=== PATIENT | female | born 1960 | race Caucasian/White ===

== ENCOUNTER 2016-07-19 09:50 | Observation (INO) | payer OTHER ==
--- NOTE | ~2016-07-19 | HP ---
History And Physical [facility] [id number] [place]. [address] NAME: REMINGTON DURAN : 58 STATUS : ADM [facility] PAT#: [id number] AGE: 56 ADM/REG DATE : 07/19/16 MR#: [id number] REPORT SERV DATE: 07/19/16 DICTATED BY: EKTA SINGER DATE: 07/19/16 REPORT STATUS : Draft TRANSCRIBED BY: MODIlene DATE: 07/19/16 DATE OF ADMISSION: 07/19/2016 CHIEF COMPLAINT: Chest pressure. HISTORY OF PRESENT ILLNESS: This is a 56-year-old, pleasant, white female with no known history of CAD, who presents to our facility with complaints of chest pressure that radiates to her left arm. She states she was up most of the night last night with diarrhea and while up, she experienced some subtle chest pain that radiated towards her left arm. She was able to go back to sleep, but the discomfort persisted this morning, which was concerning for her. She describes the chest discomfort as a pressure. She reports associated diaphoresis. Denies shortness of breath, nausea, dizziness, or belching. At its most intense, she rates the chest pain an 8/10. At the time of interview in the CPOU, she rates it a 3/10. The episode lasted several hours in duration and was improved with the application of Nitro paste to her chest wall. She reports this is a solitary event. In hind site, she has had no previous episodes and she states this pain is different than her rheumatoid arthritis pain. She denies any personal history of myocardial infarction, stroke, DVT, or pulmonary embolus. The patient denies any recent fever or chills. No palpitations. No syncopal episodes. Denies PND or orthopnea. PAST MEDICAL HISTORY: 1. Hypertension. 2. Diabetes. 3. Pyoderma gangrenosum. 4. Rheumatoid arthritis. 5. Cholesterol, followed by PCP. 6. History of nephrolithiasis. PAST SURGICAL HISTORY: 1. Right total knee replacement. 2. Bilateral cataract repair. 3. Left lumpectomy (benign). 4. Cervical ablation. 5. Septoplasty. SOCIAL HISTORY: She is single, with no children. She is employed in the accounting department at [employer] She works out on a stationary bike daily, most recently, yesterday evening for 15 minutes without incident. She denies tobacco, alcohol or illicits. FAMILY HISTORY: Mother with CAD and bypass at 74 with a stroke in her early 70s, at the age of 81. Father at 78 with a history of lupus. REVIEW OF SYSTEMS: A 14-point review of systems performed significant for HPI including home blood sugars of History And Physical [address] [address] NAME: REMINGTON DURAN : 58 STATUS : ADM [facility] PAT#: [id number] AGE: 56 ADM/REG DATE : 07/19/16 MR#: [id number] REPORT SERV DATE: 07/19/16 DICTATED BY: EKTA SINGER DATE: 07/19/16 REPORT STATUS : Draft TRANSCRIBED BY: LEVAR DATE: 07/19/16 100-150. Otherwise, a complete review of systems obtained and negative. ALLERGIES: NO KNOWN DRUG ALLERGIES. HOME MEDICINES: Aspirin 81 mg daily, Combigan eye drops every 12 hours, vitamin D 1000 units daily, dapsone 50 mg daily, Amaryl 6 mg daily, Xalatan drops at bedtime, Claritin 10 mg daily p.r.n., metformin 1000 mg twice daily, potassium chloride 20 mEq twice daily, prednisone 2.5 mg daily, Onglyza 5 mg daily, Actemra infusion every monthly, tramadol 50 mg three times daily p.r.n., folic acid 1 tablet daily, valsartan/HCTZ 160/12.5 daily. PHYSICAL EXAMINATION: BLOOD PRESSURE: 139/79. PULSE: 85. RESPIRATIONS: 16. TEMPERATURE: 98.1. HEIGHT: 5 feet 8 inches. WEIGHT: 218 pounds. BMI 33. GENERAL: Cooperative, in no apparent distress. Moonfaced secondary to steroids. HEENT: Pupils 2 mm, sclera nonicteric. Nares patent. Moist mucous membranes. No xanthelasma. NECK: Trachea midline. No thyromegaly. No JVD. No bruits. LYMPH: No cervical lymphadenopathy. No supraclavicular lymphadenopathy. RESPIRATORY: Unlabored respirations. Breath sounds clear bilaterally to posterior auscultation. No wheezes or rhonchi. CARDIOVASCULAR: Regular rate. No murmur, rub or gallop appreciated. EXTREMITIES: Without edema. Pulses 2+ bilaterally. ABDOMEN: Soft, nontender, nondistended. Normal bowel sounds auscultated throughout. No organomegaly. SKIN: Warm, dry extremities. No pallor or cyanosis. PSYCHIATRIC: Appropriate affect. Alert, oriented x3. LABORATORY DATA: Troponin less than 0.02, next due at 1600. Potassium 4.0, BUN 10, creatinine 0.73, glucose 136, magnesium 1.6. WBC 5.8, hemoglobin 13.6, hematocrit 41.4, platelet count 242,000. EKG, sinus rhythm. ASSESSMENT AND PLAN: 1. Substernal chest pain with atypical features in patient with risk factors of hypertension and diabetes. We will observe in the CPOU overnight to rule out myocardial infarction per protocol and if 2nd and 3rd troponins negative, n.p.o. for MPI in the morning. The patient will be discharged home if low risk, no ischemia. If anything suggestive of ischemia, Cardiology referral will be initiated. Otherwise, the patient will be asked to follow up with her PCP in one to two weeks with all studies being sent to that office. 2. Hypertension. Monitor blood pressure and continue home medications. 3. Adult-onset diabetes mellitus. Hold metformin and level 1 sliding scale correction. MIO/LEVAR Ekta History And Physical [address] [address] NAME: REMINGTON DURAN : 58 STATUS : ADM [facility] PAT#: [id number] AGE: 56 ADM/REG DATE : 07/19/16 MR#: [id number] REPORT SERV DATE: 07/19/16 DICTATED BY: EKTA SINGER DATE: 07/19/16 REPORT STATUS : Draft TRANSCRIBED BY: MODL DATE: 07/19/16 ALYCE Singer, [employer] / [id number] CC: ALYCE Verma, [employer] Mei Dunn M.D.
[~2016-07-19 09:50] MED LIST: ALLEGRA-D12 HOUR PO; ASAB PO; CALTRA600D PO; CELLCEPT5 PO; DIOVAN HC1 PO; FOLBEE PO; GLUCPH PO; HUMIRA PEN SC; P5 PO; PRAV10 PO; TIMOLOL MAL0.5 % OP; VITAMIN D1000 UNI1 PO; XALAT OPH
[2016-07-19 10:02] LABS: BASOPHILS 1.4 %; BASOPHILS ABSOLUTE 0.08 10/3/uL (0.0-0.16); EOSINOPHILS 6.9 %; ER CBC TAT 0 Hrs 05 Mins; HEMATOCRIT 41.4 % (36.0-48.0); HEMOGLOBIN 13.6 g/dL (12.0-16.0); IMMATURE GRANULOCYTES 0.2 %; IMMATURE GRANULOCYTES ABSOLUTE 0.01 10/3/uL (0.0-0.11); LYMPHOCYTES 18.8 %; LYMPHOCYTES ABSOLUTE 1.09 10/3/uL (0.67-4.30); MANUAL DIFF NO %; MEAN CORPUS HGB CONC 32.9 g/dL (32.0-36.0); MEAN CORPUSCULAR VOLUME 97.4 fL (80-100); MEAN PLATELET VOLUME 8.9 fL (9.2-13.0); MONOCYTES 9.8 %; MONOCYTES ABSOLUTE 0.57 10/3/uL (0.21-1.20); NEUTROPHILS 62.9 %; NEUTROPHILS ABSOLUTE 3.66 10/3/uL (2.02-8.40); PLATELET COUNT 242 10/3/uL (150-400); RBC DISTRIBUTION WIDTH 12.8 % (12.0-16.0); RED CELL COUNT 4.25 10/6/uL (4.0-5.6); WHITE BLOOD CELLS 5.8 10/3/uL (4.5-10.5)
[2016-07-19 10:09] LABS: PARTIAL THROMBO TIME 26.8 SEC (22.5-37.2); PROTIME (NOT ORD) 13.1 SEC (12.0-14.5)
[2016-07-19 10:18] LABS: BUN (BLOOD UREA NITROGEN) 10 MG/DL (6-23); CALCIUM, SERUM 8.6 MG/DL (8.5-10.4); CHEST PAIN PROFILE TAT 0 Hrs 21 Mins; CHLORIDE, SERUM 104 MMOL/L (96-112); CO2 (CARBON DIOXIDE) 25 MMOL/L (24-34); CREATININE 0.73 MG/DL (0.55-1.02); GFR AFRICAN AMERICAN 106 ML/MIN (>=60); GFR NON AFRICAN AMERICAN 91 ML/MIN (>=60); GLUCOSE, SERUM 136 MG/DL (60-99); SODIUM, SERUM 140 MMOL/L (135-148); TROPONIN I <0.02 NG/ML (<0.05)
[2016-07-19] MEDS ORDERED: FOLIC ACID PO (12:47)
[2016-07-19] MEDS ORDERED: ASAB PO (12:47)
[2016-07-19] MEDS ORDERED: CYANOCOBALAMIN PO (12:47)
[2016-07-19] MEDS ORDERED: PREDNISONE2.5 MG PO (12:48)
[2016-07-19] MEDS ORDERED: DIOVAN HC1 PO (12:49)
[2016-07-19] MEDS ORDERED: GLUCOPHAGE1000 MG PO (12:49)
[2016-07-19] MEDS ORDERED: VITAMIN D1000 UNI1 PO (12:50)
[2016-07-19] MEDS ORDERED: COMBIGAN0.2 MG/0.5 OPH (12:51)
[2016-07-19] MEDS ORDERED: XALAT OPH (12:51)
[2016-07-19] MEDS ORDERED: AMARYL2 PO (12:52)
[2016-07-19] MEDS ORDERED: ACTEMRA80 MG/4 ML IV (12:54)
[2016-07-19] MEDS ORDERED: ULTRAM50 PO (12:55)
[2016-07-19] MEDS ORDERED: KLOR-CON M2020 MEQ PO (12:56)
[2016-07-19] MEDS ORDERED: DAPSONE25 MG PO (12:56)
[2016-07-19] MEDS ORDERED: ONGLYZA5 MG PO (12:56)
[2016-07-19] MEDS ORDERED: CLARIT10 PO (12:57)
== END 2016-07-20 15:15 | disposition home or self-care (01) ==
LOC: ER 09:50 → CDU1 12:40 → CDU2 13:05
PROVIDERS: Emergency Medicine
DX: R07.2 Precordial pain (principal); I10 Essential (primary) hypertension; M06.9 Rheumatoid arthritis, unspecified; E11.9 Type 2 diabetes mellitus without complications; Z79.82 Long term (current) use of aspirin; Z79.899 Other long term (current) drug therapy; Z98.41 Cataract extraction status, right eye; Z98.42 Cataract extraction status, left eye; Z96.651 Presence of right artificial knee joint
CPT/HCPCS: 71020; 78452; 80048; 82962; 83735; 84484; 85025; 85610; 85730; 93005; 93017; 99285; A9270-GY; A9502; G0378